=== PATIENT | male | born 1995 | race Caucasian/White ===

== ENCOUNTER 2017-10-20 14:20 | Emergency (ER) | payer SELFPAY ==
[2017-10-20] MEDS ORDERED: CEFTRIAXONE INJ 250 MG VIAL IM ONE (14:42)
[2017-10-20] MEDS ORDERED: ONDANSETRON 4 MG TAB.RAPDIS PO ONE (14:43)
[2017-10-20] MEDS ORDERED: AZITHROMYCIN 1 GM SUSP PACKET PO ONE (14:43)
--- NOTE | 2017-10-20 14:50 | ER Document Report ---
ED GI/ - General Chief Complaint: Penile Problem Stated Complaint: GENITAL ISSUE Time Seen by Provider: 10/20/17 14:36 Mode of Arrival: Ambulatory Information source: Patient Notes: Patient complains of greenish yellow discharge from his penis which started 3 days ago. He said he is sexually active with 2 different women. He denies fever/chills, abdominal pain, nausea or vomiting. Patient denies any history of STD in the past. Patient also complains of burning sensation with urination. TRAVEL OUTSIDE OF THE [place] IN LAST 30 DAYS: No - HPI Patient complains to provider of: Dysuria, Other - Discharge from the penis. Timing/Duration: Sudden Quality of pain: Burning Severity at maximum: Moderate Severity in ED: Moderate Pain Level: 3 Location: Other - Penis Sexual history: Active Associated symptoms: Dysuria, Penile discharge Exacerbated by: Denies Relieved by: Denies Similar symptoms previously: No Recently seen / treated by doctor: No - Related Data Allergies/Adverse Reactions: No Known Allergies Allergy (Unverified 10/20/17 14:25) Past Medical History - General Information source: Patient - Social History Smoking Status: Current Some Day Smoker Cigarette use (# per day): Yes - 4 Chew tobacco use (# tins/day): No Smoking Education Provided: Yes Frequency of alcohol use: Social Drug Abuse: None Family History: DM, Hypertension Review of Systems - Review of Systems Constitutional: denies: Chills, Fever EENT: denies: Eye pain, Eye discharge Cardiovascular: denies: Chest pain, Palpitations Respiratory: denies: Cough, Short of breath Gastrointestinal: denies: Abdominal pain, Diarrhea, Nausea, Vomiting Genitourinary: Dysuria, Discharge Male Genitourinary: Penile discharge Musculoskeletal: denies: Back pain, Gout, Joint pain, Joint swelling Skin: denies: Change in color, Dryness, Lesions Hematologic/Lymphatic: No symptoms reported Neurological/Psychological: denies: Confusion, Dementia, Depression, Anxiety, Hallucinations, Weakness, Lost consciousness, Numbness -: Yes All other systems reviewed and negative Physical Exam - Vital signs Vitals: Temp Pulse Resp BP Pulse Ox 97.9 F 86 18 130/75 H 96 10/20/17 14:25 10/20/17 14:25 10/20/17 14:25 10/20/17 14:25 10/20/17 14:25 - General General appearance: Appears well, Alert In distress: None - HEENT Head: Normocephalic Eyes: Normal Conjunctiva: Normal Cornea: Normal Extraocular movements intact: Yes Eyelashes: Normal Pupils: PERRL - Respiratory Respiratory status: No respiratory distress Chest status: Nontender Breath sounds: Normal Chest palpation: Normal - Cardiovascular Rhythm: Regular Heart sounds: Normal auscultation Murmur: No - Abdominal Inspection: Normal Distension: No distension Bowel sounds: Normal Tenderness: Nontender Organomegaly: No organomegaly - Genitourinary Inspection: Penile discharge - Yellowish green discharge from the penis. Emergency Doctor was Ms Autumn RN. - Back Back: Normal, Nontender - Extremities General upper extremity: Normal inspection, Nontender, Normal color, Normal ROM , Normal temperature General lower extremity: Normal inspection, Nontender, Normal color, Normal ROM , Normal temperature, Normal weight bearing. No: Lacy's sign - Neurological Neuro grossly intact: Yes Cognition: Normal Orientation: AAOx4 [place] Coma Scale Eye Opening: Spontaneous Kimi Coma Scale Verbal: Oriented [place] Coma Scale Motor: Obeys Commands [place] Coma Scale Total: 15 Speech: Normal Motor strength normal: LUE, RUE, LLE, RLE Sensory: Normal - Psychological Associated symptoms: Normal affect, Normal mood - Skin Skin Temperature: Warm Skin Moisture: Dry Skin Color: Normal Course - Vital Signs Vital signs: Temp Pulse Resp BP Pulse Ox 97.9 F 86 18 130/75 H 96 10/20/17 14:25 10/20/17 14:25 10/20/17 14:25 10/20/17 14:25 10/20/17 14:25 - Laboratory Laboratory results interpreted by me: 10/20/17 14:50 Urine Protein 100 H Urine Blood SMALL H Ur Leukocyte Esterase LARGE H - Transfer of Care Notes: 10/20/17 14:50 STD. UTI. Discharge - Discharge Clinical Impression: Possible exposure to STD UTI (urinary tract infection) Qualifiers: Urinary tract infection type: acute cystitis Hematuria presence: without hematuria Qualified Code(s): N30.00 - Acute cystitis without hematuria Condition: Stable Disposition: HOME, SELF-CARE Additional Instructions: Please follow-up with your primary doctor on Sunday morning. You have been treated empirically for gonorrhea and chlamydia. Please avoid sexual activity until you are illness resolves. Return to the emergency room if her condition worsens. Prescriptions: Ciprofloxacin HCl [Cipro 500 mg Tablet] 500 mg PO BID 10 Days #20 tablet Ibuprofen [Motrin 600 Mg Tablet] 600 mg PO TID PRN #15 tablet PRN Reason: Pain Scale Of 4 Forms: Return to Work
[2017-10-20] MEDS ORDERED: AZITHROMYCIN 250 MG TABLET PO ONE (14:56)
[2017-10-20] MEDS ORDERED: LIDOCAINE 1% INJ (10 MG/ML) 10 ML MDV ONE (14:59)
[2017-10-20] MEDS ORDERED: LIDOCAINE 1% INJ (10 MG/ML) 10 ML MDV INJ ONE (15:00)
[2017-10-20 15:08] LABS: APPEARANCE,URINE SLIGHTLY-CLOUDY; BILIRUBIN,URINE NEGATIVE (NEGATIVE); COLOR,URINE YELLOW; GLUCOSE, URINE NEGATIVE (NEGATIVE); KETONES,URINE NEGATIVE (NEGATIVE); LEUKOCYTE ESTERASE,URINE LARGE (NEGATIVE); NITRITE,URINE NEGATIVE (NEGATIVE); PROTEIN,URINE 100 mg/dL (NEGATIVE); URINE SPECIFIC GRAVITY 1.026; UROBILINOGEN,URINE NEGATIVE mg/dL (<2.0)
[2017-10-20 15:54] VITALS: BP 132/87
[2017-10-20 16:31] LABS: CHLAM PCR NOT DETECTED (NOT DETECT); GON PCR DETECTED (NOT DETECT)
== END 2017-10-20 15:55 | disposition home or self-care (01) ==
LOC: ER 14:20
DX: R36.9 Urethral discharge, unspecified (principal); N30.00 Acute cystitis without hematuria; Z20.2 Contact with and (suspected) exposure to infections with a predominantly sexual mode of transmission; F17.210 Nicotine dependence, cigarettes, uncomplicated
CPT/HCPCS: 99283; 96372; 81001; 87491; 87591; S0119; J0696